=== PATIENT | male | born 2000 | race Hispanic/Latino ===

== ENCOUNTER 2024-09-08 01:41 | Emergency (ER) | payer SELFPAY ==
[~2024-09-08] VITALS: Ht 165.1 cm; Wt 67.1 kg
--- NOTE | 2024-09-08 02:36 | ERN ---
General Chief Complaint: Lower Extremity Pain/Injury Stated Complaint: C/O SWELLING WITH PAIN TO LEFT LOWER LEG X 3 DAYS Time Seen by MD: 01:43 History of Present Illness Initial Comments Otherwise healthy 24-year-old male presents with a bilateral leg swelling. Reports that about three weeks ago he had episodes of vomiting diarrhea and a fever. The symptoms have gone away but since then he has developed bilateral leg swelling more so in his left in the right. He was some areas of discoloration to the right bilateral since with swelling more on the left than right. He does report pain. No fevers, dyspnea, chest pains or other symptoms. He has been urinating normally. Allergies: Coded Allergies: No Known Allergies (Unverified Allergy, Unknown, 09/08/24) Past Medical History Past Medical History: No Pertinent History Past Surgical History: None ROS Dictation CONSTITUTIONAL: No chills, no fever, no weakness, no diaphoresis, no malaise. HEAD/FACE: No signs of trauma. EENT: No eye pain, no blurred vision, no tearing, no double vision, no ear pain, no ear discharge, no nose pain, no nasal congestion, no throat pain, no throat swelling, no mouth pain. RESPIRATORY: No cough, no orthopnea, no SOB, no stridor, no wheezing. CARDIOVASCULAR: No chest pain, no edema, no palpitations, no syncope. GASTROINTESTINAL/ABDOMINAL: No abdominal pain, no constipation, no diarrhea, no nausea, no vomiting. GENITOURINARY: No abnormal discharge, no dysuria, no frequent urination, no hematuria. No complaints of pain in the genitals. MUSCULOSKELETAL: Bilateral leg pain and swelling NEUROLOGICAL/PSYCH: No anxiety, not depressed, no emotional problem, no headache, no numbness, no pre-existing deficit, no history of seizures, no tremors, no weakness. HEMATOLOGIC/LYMPHATIC: Not anemic, no history of blood clots, no apparent bleeding, no bruising, glands not swollen. All Systems Negative, Except as Noted. Physical Exam Physical Exam Dictation VITAL SIGNS: Reviewed. GENERAL APPEARANCE: Alert, oriented x3, no acute distress HEAD AND FACE: Non-traumatic. EYES: PERRL, pink conjunctivas, eyelid no trauma, anterior chamber clear. EARS: Pinnas intact and no signs of trauma or erythema. Ear canals clear and no discharge. TMs no erythema. NOSE: No discharge, no bleeding. OROPHARYNX: Mouth normal, teeth no caries, tongue pink. Pharynx clear, no erythema. Tonsils no exudates, no abscesses noted. Mucous membrane moist. NECK: Supple, non-tender, no thyromegaly, no masses, no JVD, no bruits. BREAST: Deferred. CHEST: No tenderness, no crepitus, no paradoxical movement, no retractions. LUNGS: Clear, well-ventilated, symmetric, no rales, no wheezing, no rhonchi, no stridor, good breath sounds bilaterally. HEART: Regular rate, regular rhythm, no murmur, no gallops. VASCULAR: No peripheral edema. ABDOMEN: Soft, positive bowel sounds, nondistended, no guarding, nontender, no rebound, no masses no hepatomegaly, no splenomegaly, no Salomon's sign, no hernias. RECTAL: Deferred. GENITAL: Deferred. NEUROLOGICAL: Normal speech, gross motor function intact, gross sensory function intact. MUSCULOSKELETAL: Neck nontender, full range of motion, back nontender, full range of motion. Bilateral leg swelling EXTREMITIES: Nontender, full range of motion. SKIN: Color pink, dry, no turgor, no rash, no lacerations, no abrasions, no contusions. LYMPHATICS: Deferred. Results Laboratory and Microbiology Lab and Micro Result Laboratory Tests Test 09/08/24 03:07 09/08/24 04:46 White Blood Count 10.0 K/uL (4.8-10.8) Red Blood Count 4.07 MIL/uL (4.50-6.20) L Hemoglobin 12.0 g/dL (14.0-18.0) L Hematocrit 36.0 % (42-54) L Mean Corpuscular Volume 88.5 fL (79-99) Mean Corpuscular Hemoglobin 29.5 pg (27.0-33.0) Mean Corpuscular Hemoglobin Concent 33.3 g/dL (32.0-36.0) Red Cell Distribution Width 12.2 % (11.0-15.5) Platelet Count 401 K/uL (130-400) H Mean Platelet Volume 9.1 fL (7.5-10.5) Immature Granulocyte % (Auto) 0.2 % (0-1) Neutrophils (%) (Auto) 69.5 % (40.0-77.0) Lymphocytes (%) (Auto) 12.8 % (21.0-51.0) L Monocytes (%) (Auto) 11.7 % (3.0-13.0) Eosinophils (%) (Auto) 4.6 % (0.0-8.0) Basophils (%) (Auto) 1.2 % (0.0-5.0) Neutrophils # (Auto) 6.9 K/uL (1.8-7.7) Lymphocytes # (Auto) 1.3 K/uL (1.0-4.8) Monocytes # (Auto) 1.2 K/uL (0.1-1.0) H Eosinophils # (Auto) 0.46 K/uL (0.00-0.70) Basophils # (Auto) 0.12 K/uL (0.00-0.20) Absolute Immature Granulocyte (auto 0.02 K/uL (0-1) Nucleated Red Blood Cells 0.0 % (0.0-0.19) Erythrocyte Sedimentation Rate 45 MM/HR (0-15) H D-Dimer Quantitative (PE/DVT) 3054 ng/mL (0-500) *H Sodium Level 144 mmol/L (136-145) Potassium Level 4.1 mmol/L (3.5-5.1) Chloride Level 107 mmol/L (101-111) Carbon Dioxide Level 31 mmol/L (21-32) Blood Urea Nitrogen 8 mg/dL (7-18) Creatinine 1.0 mg/dL (0.5-1.3) Glomerular Filtration Rate Calc 108 mL/min (>90) Random Glucose 98 mg/dL (70-105) Total Calcium 9.0 mg/dL (8.5-10.1) Total Bilirubin 0.1 mg/dL (0.2-1.0) L Direct Bilirubin < 0.1 mg/dL (0.0-0.3) Aspartate Amino Transf (AST/SGOT) 13 U/L (10-37) Alanine Aminotransferase (ALT/SGPT) 14 U/L (12-78) Alkaline Phosphatase 108 U/L (50-136) Troponin I High Sensitivity 5 ng/L (4-75) C-Reactive Protein, Quantitative 20.90 mg/L (0.5-3.0) H B-Type Natriuretic Peptide < 5 pg/mL (0-100) Total Protein 6.7 g/dL (6.0-8.3) Albumin 2.8 g/dL (3.5-5.0) L Urine Color YELLOW (YELLOW) Urine Appearance CLOUDY (CLEAR) H Urine pH 7.5 (5.0-8.0) Urine Specific [place] 1.024 (1.001-1.031) Urine Protein 10 mg/dL (NEGATIVE) H Urine Glucose (UA) NEGATIVE mg/dL (NEGATIVE) Urine Ketones 5 mg/dL (NEGATIVE) H Urine Occult Blood NEGATIVE (NEGATIVE) Urine Nitrate NEGATIVE (NEGATIVE) Urine Bilirubin NEGATIVE mg/dL (NEGATIVE) Urine Urobilinogen 0.2 mg/dL (0.2-1.0) Urine Leukocyte Esterase NEGATIVE Rin/uL Urine RBC 2-5 /HPF (0-1) H Urine WBC None /HPF (0-1) Urine Amorphous Crystals (Auto) RARE /LPF (None Seen) Urine Bacteria FEW /HPF (None Seen) MDM CC: Swelling bilateral legs Historian: Patient Comorbidities: None Limitations by social determinants of health: Uninsured Differential diagnosis: Kidney disease, heart failure, cellulitis, DVT other Vital signs: Stable, remained stable Labs: No leukocytosis, mild normocytic in his hemoglobin at 12. Platelets of 401. The sed rate is 45. CRP elevated 20. Rest of the electrolytes liver function are stable. Albumin 2.8 total protein 6.7. BNP stable. Urinalysis shows protein 2-5 RBCs otherwise unremarkable. All labs all labs individually order interpreted by me. Chest x-ray per my independent interpretation shows no cardiomegaly focal infiltrates or vascular congestion. Doppler study shows no signs of DVT. Independently interpreted by me. 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 Will recommend supportive care, salt and protein restriction, and PCP follow up. We will give Lasix for the edema. ED Course Orders Procedure Category Date Status Time Cbc With Differential LAB 09/08/24 Complete 02:27 Basic Metabolic Panel LAB 09/08/24 Complete 02:27 B-Type Natriuretic LAB 09/08/24 Complete Peptide 02:27 Urinalysis Profile LAB 09/08/24 Complete 02:27 Hepatic Function Panel LAB 09/08/24 Complete 02:27 Troponin I High LAB 09/08/24 Complete Sensitivity 02:27 Chest 1vw RAD 09/08/24 Taken 02:27 Us Venous Doppler US 09/08/24 Taken Bilateral 02:27 D-Dimer LAB 09/08/24 Complete 02:27 Erythrocyte LAB 09/08/24 Complete Sedimentation Rate 02:27 Crp Quantitative LAB 09/08/24 Complete 02:27 Vital Signs Date Time Temp Pulse Resp B/P (MAP) Pulse Ox O2 Delivery O2 Flow Rate FiO2 09/08/24 05:30 98.6 96 16 130/79 99 Room Air* 0 21 09/08/24 02:07 98.8 90 18 126/70 99 Room Air* 0 21 09/08/24 01:43 99.1 92 20 138/73 99 Room Air DX & DISP Disposition: Discharge Departure Impression: Primary Impression: Pedal edema Additional Impression: Proteinuria Condition: Stable Scripts Furosemide (Lasix 20Mg Tab) 20 Mg Tablet 1 TAB PO DAILY for swelling for 10 Days, #10 TAB 0 Refills Prov: MARY MCKEON DO 09/08/24 Additional Instructions: Your symptoms are likely related to your kidneys. Your lab work (CBC, BMP, CK, CRP, ESR, liver function tests, albumin, BNP, urinalysis) shows signs of inflammation. There is protein in your urine. I recommend restricting fluid intake to reduce edema. Limit your fluid intake to 2 L daily. I recommend sodium restriction. Limit your sodium intake to less than 2 g per day. I have prescribed furosemide, which is a diuretic. Take this once per day for the next 5-10 days for swelling. You will need to follow up with the primary doctor. You likely need further monitoring or studies. Please return to the emergency department as needed. Referrals: SELF,REFERRAL (PCP) MARY MCKEON DO Sep 08, 2024 02:36
[2024-09-08 03:19] LABS: BASOPHILS # (AUTO) 0.12 K/uL (0.00-0.20); BASOPHILS % (AUTO) 1.2 % (0.0-5.0); EOSINOPHILS # (AUTO) 0.46 K/uL (0.00-0.70); EOSINOPHILS % (AUTO) 4.6 % (0.0-8.0); IMMATURE GRANULOCYTE ABSOLUTE 0.02 K/uL (0-1); LYMPHOCYTES # (AUTO) 1.3 K/uL (1.0-4.8); LYMPHOCYTES % (AUTO) 12.8 % (21.0-51.0); MEAN CORPUSCULAR HEMOGLOBIN 29.5 pg (27.0-33.0); MEAN CORPUSCULAR HGB CONC 33.3 g/dL (32.0-36.0); MEAN CORPUSCULAR VOLUME 88.5 fL (79-99); MONOCYTES # (AUTO) 1.2 K/uL (0.1-1.0); MONOCYTES % (AUTO) 11.7 % (3.0-13.0); NEUTROPHILS # (AUTO) 6.9 K/uL (1.8-7.7); NEUTROPHILS % (AUTO) 69.5 % (40.0-77.0); PLATELET COUNT (AUTO) 401 K/uL (130-400); RED BLOOD CELL COUNT(AUTO) 4.07 MIL/uL (4.50-6.20); RED CELL DISTRIBUTION WIDTH 12.2 % (11.0-15.5)
[2024-09-08 03:31] LABS: CARBON DIOXIDE 31 mmol/L (21-32); CHLORIDE 107 mmol/L (101-111); GLOMERULAR FILTR. RATE CALC 108 mL/min (>90); GLUCOSE,RANDOM 98 mg/dL (70-105); POTASSIUM 4.1 mmol/L (3.5-5.1); SODIUM SERUM 144 mmol/L (136-145); UREA NITROGEN, BLOOD 8 mg/dL (7-18)
[2024-09-08 03:35] LABS: ALANINE AMINOTRANSFERASE 14 U/L (12-78); ALBUMIN 2.8 g/dL (3.5-5.0); ASPARTATE AMINOTRANSFERASE 13 U/L (10-37); BILIRUBIN,DIRECT < 0.1 mg/dL (0.0-0.3); BILIRUBIN,TOTAL 0.1 mg/dL (0.2-1.0); TOTAL PROTEIN, SERUM 6.7 g/dL (6.0-8.3)
[2024-09-08 03:40] LABS: B-TYPE NATRIURETIC PEPTIDE < 5 pg/mL (0-100)
[2024-09-08 04:26] LABS: ERYTHROCYTE SEDIMENTATION RATE 45 MM/HR (0-15)
[2024-09-08 05:08] LABS: APPEARANCE,URINE CLOUDY (CLEAR); BILIRUBIN,URINE NEGATIVE (NEGATIVE); COLOR,URINE YELLOW (YELLOW); GLUCOSE, URINE (UA) NEGATIVE (NEGATIVE); KETONES,URINE 5 mg/dL (NEGATIVE); LEUKOCYTE ESTERASE ,URINE NEGATIVE Leu/uL (NEGATIVE); NITRATE,URINE NEGATIVE (NEGATIVE); OCCULT BLOOD,URINE NEGATIVE (NEGATIVE); PH,URINE 7.5 (5.0-8.0); PROTEIN,URINE 10 mg/dL (NEGATIVE); UROBILINOGEN,URINE 0.2 mg/dL (0.2-1.0)
[2024-09-08 05:12] LABS: ADD UA MICROSCOPIC YES
[2024-09-08 05:14] LABS: BACTERIA,URINE FEW /HPF (None Seen); MUCUS,URINE RARE LPF (None Seen)
[2024-09-08] MEDS ORDERED: FURO20TA6 PO (05:34)
[2024-09-08 06:10] VITALS: BP 124/72; PULSE 92; RESP 16; TEMP 98.5; O2SAT 99
--- NOTE | 2024-09-08 08:28 | HMCIMG ---
ULTRASOUND VENOUS DOPPLER, BILATERAL LOWER EXTREMITIES INDICATION: Bilateral lower extremity pain and swelling TECHNIQUE: Routine grayscale and color Doppler ultrasound of the bilateral lower extremity veins performed. COMPARISON: No priors. FINDINGS: The demonstrated veins of the bilateral lower extremity including the common femoral vein, femoral vein, and popliteal vein are associated with normal compressibility, augmentation, and flow. Normal respiratory variation was identified. No evidence for echogenic intraluminal thrombus formation. Single left groin lymph node retains its normal reniform shape and fatty hilum. IMPRESSION: No sonographic evidence for deep venous thrombosis within the bilateral lower extremity veins.
--- NOTE | 2024-09-08 08:28 | HMCIMG ---
PORTABLE CHEST RADIOGRAPH INDICATION: swelling COMPARISON: None FINDINGS: Heart size is normal. The pulmonary vascularity and cora appear normal. No abnormal pulmonary parenchymal opacity or consolidation identified. No significant pleural effusion noted. No pneumothorax detected. IMPRESSION: No radiographic evidence for any acute cardiopulmonary process.
== END 2024-09-08 06:12 | disposition home or self-care (01) ==
LOC: EDH 01:41
DX: R60.0 Localized edema (principal); R80.9 Proteinuria, unspecified; Z59.71 Insufficient health insurance coverage
CPT/HCPCS: 36415; 71045; 80048; 80076; 81001; 83880; 84484; 85025; 85378; 85651; 86140; 93970; 99284